=== PATIENT | female | born 1965 | race Caucasian/White ===

== ENCOUNTER 2017-03-16 18:03 | Emergency (ER) | payer OTHER ==
[~2017-03-16] VITALS: Ht 172.7 cm; Wt 125.4 kg
[~2017-03-16 18:03] MED LIST: ADVIL,NUPRIN,M200 MG PO; AUGMENTIN875 MG PO; ENDOCET 5-3251 EACH PO; EXCEDRIN MIGRAI1 TAB PO; FLEXERIL10 MG PO; KAPIDEX60 MG PO; LORTAB 7.5/51 TABLET PO; NAPROSYN500 MG PO; PERCOCET 5/31 TABLET PO; PREDNISONE10 MG PO; PREDNISONE20 MG PO; PROTONIX40 MG PO; STOOL SOFTENER100 M1 PO; Tums PO; ULTRAM50 MG PO; VALIUM5 MG PO; VICODIN 5-3001 EACH PO
[2017-03-16] MEDS ORDERED: FLEXERIL10 MG PO (20:39)
[2017-03-16] MEDS ORDERED: LORTAB 5-325 M1 EACH PO (20:39)
[2017-03-16] MEDS ORDERED: LIDODERM 5% P1 PATCH TD (20:39)
[2017-03-16] MEDS ORDERED: PREDNISONE10 MG PO (20:39)
[2017-03-16 22:16] LABS: HEMATOCRIT 43.5 % (36.0-46.0); MCH 30.2 PG (29.0-34.0); MCHC 33.6 G/DL (30.0-36.0); MCV 90.1 FL (83-99); MEAN PLAT.VOLUME 10.8 uM^3 (9.5-12.4); PLATELET COUNT 260 K/uL (156-360); RBC DIS.WIDTH-CV 13.3 % (11.8-14.6); RBC DIS.WIDTH-SD 43.9 % (39-53); RED BLOOD COUNT 4.83 M/uL (3.80-5.20); WHITE BLOOD COUNT 9.2 K/uL (4.1-10.2)
[2017-03-16 22:27] LABS: CHLORIDE 112 mEq/L (99-109); POTASSIUM 4.3 mEq/L (3.7-5.4); SODIUM 142 mEq/L (136-147)
[2017-03-16 22:30] LABS: GLUCOSE 140 mg/dL (70-99)
[2017-03-16 22:31] LABS: ANION GAP 11 MEQ/L (2-14)
[2017-03-16 22:32] LABS: TOTAL BILIRUBIN 0.3 mg/dL (0.0-1.0)
[2017-03-16 22:33] LABS: ALKALINE PHOSPHATASE 73 IU/L (3-129); GFR ESTIMATE (CALCULATED) > 59 mL/min/
[2017-03-16 22:34] LABS: UREA NITROGEN (BUN) 13 mg/dL (9-23)
[2017-03-16 22:36] LABS: TROP-I INTERPRETATION NEGATIVE; TROPONIN-I < 0.01 ng/mL (0.0-0.30)
[2017-03-17 01:11] LABS: TROP-I INTERPRETATION NEGATIVE; TROPONIN-I < 0.01 ng/mL (0.0-0.30)
[2017-03-17 01:39] VITALS: BP 125/88
== END 2017-03-17 01:40 | disposition home or self-care (01) ==
LOC: EME 18:03
PROVIDERS: Nurse Practitioner Family; Physician Assistant Medical
DX: R07.9 Chest pain, unspecified (principal); M54.42 Lumbago with sciatica, left side; S16.1XXA Strain of muscle, fascia and tendon at neck level, initial encounter; S46.812A Strain of other muscles, fascia and tendons at shoulder and upper arm level, left arm, initial encounter; S39.012A Strain of muscle, fascia and tendon of lower back, initial encounter; X58.XXXA Exposure to other specified factors, initial encounter; F17.200 Nicotine dependence, unspecified, uncomplicated
CPT/HCPCS: 71020; 73502; 80053; 84484; 85027; 93005; 99281; 99284; J1885; J2270; J3010; J7512

== ENCOUNTER 2018-01-15 00:12 | Observation (INO) | payer SELFPAY ==
[~2018-01-15] VITALS: Ht 172.7 cm; Wt 126.3 kg
[~2018-01-15 00:12] MED LIST changes: +LIDODERM 5% P1 PATCH TD; +LORTAB 5-325 M1 EACH PO
[2018-01-15 01:01] LABS: BASOPHIL (%) 0.8 % (0-1); BASOPHIL COUNT 0.1 K/uL (0-0.1); EOSINOPHIL (%) 2.5 % (0-5); EOSINOPHIL COUNT 0.3 K/uL (0-0.3); HEMATOCRIT 41.8 % (36.0-46.0); IMMATURE GRANULOCYTE (%) 0.4 % (0.0-0.7); LYMPHOCYTE (%) 35.9 % (15-42); LYMPHOCYTE COUNT 3.7 K/uL (1.0-2.8); MCH 30.3 PG (29.0-34.0); MCHC 33.5 G/DL (30.0-36.0); MCV 90.5 FL (83-99); MONOCYTE (%) 7.4 % (3-12); MONOCYTE COUNT 0.8 K/uL (0-0.8); NEUTROPHIL COUNT 5.4 K/uL (1.8-6.4); PLATELET COUNT 262 K/uL (156-360); RBC DIS.WIDTH-CV 13.2 % (11.8-14.6); RBC DIS.WIDTH-SD 43.9 % (39-53); RED BLOOD COUNT 4.62 M/uL (3.80-5.20); WHITE BLOOD COUNT 10.2 K/uL (4.1-10.2)
[2018-01-15 01:09] LABS: PTT 29.9 SEC (25-37)
[2018-01-15 01:13] LABS: CHLORIDE 110 mEq/L (99-109)
[2018-01-15 01:14] LABS: SODIUM 144 mEq/L (136-147)
[2018-01-15 01:15] LABS: GLUCOSE 99 mg/dL (70-99)
[2018-01-15 01:19] LABS: CREATININE 0.8 mg/dL (0.6-1.3); GFR ESTIMATE (CALCULATED) > 59 mL/min/
[2018-01-15 01:20] LABS: UREA NITROGEN (BUN) 14 mg/dL (9-23)
[2018-01-15 01:23] LABS: TROP-I INTERPRETATION NEGATIVE; TROPONIN-I < 0.01 ng/mL (0.0-0.30)
[2018-01-15] MEDS ORDERED: EXCEDRIN MIGRA1 EAC3 PO (04:28)
[2018-01-15] MEDS ORDERED: TIZANIDINE HCL4 MG PO (04:28)
[2018-01-15 05:58] LABS: HDL CHOLESTEROL 42 MG/DL (Desirable>=50); LDL CHOLESTEROL 171 mg/dL (Desirable<100); NON-HDL CHOLESTEROL 204 mg/dL (Desirable<160); TOTAL CHOLESTEROL 246 mg/dL (Desirable<200); TRIGLYCERIDES 164 MG/DL (Normal: <150)
[2018-01-15 06:11] VITALS: BP 119/73
[2018-01-15 07:40] VITALS: BP 115/65
[2018-01-15 12:08] LABS: HEMOGLOBIN A1c (GLYCOHEMOGLOB) 5.6 % (Below 5.7)
[2018-01-15 12:12] VITALS: BP 121/71
[2018-01-15] MEDS ORDERED: ATORVASTATIN CA40 MG PO (14:20)
[2018-01-15] MEDS ORDERED: ASPIRIN81 M2 PO (14:20)
[2018-01-15] MEDS ORDERED: ANTIVERT25 MG PO (14:20)
[2018-01-15] MEDS ORDERED: BUTALB-APAP-CA1 EACH PO (15:06)
[2018-01-15] MEDS ORDERED: MELOXICAM7.5 MG PO (15:20)
[2018-01-15] MEDS ORDERED: ROPINIROLE HCL4 MG PO (15:20)
[2018-01-15 16:18] VITALS: BP 129/78
[2018-01-15 19:15] VITALS: BP 122/59
[2018-01-16] VITALS: BP 104/59
[2018-01-16 04:42] VITALS: BP 89/54
[2018-01-16 06:06] VITALS: BP 115/63
[2018-01-16 07:17] VITALS: BP 110/55
== END 2018-01-16 11:13 | disposition home or self-care (01) ==
LOC: EME 00:12 → EDOF 03:54 → 4SOUTH 03:54 → EDOF 03:54 → ENRESERV 03:57 → 4SOUTH 05:14 → ENPENDDIS 01-16 10:08 → 4SOUTH 01-16 11:13
PROVIDERS: Emergency Medicine; Nurse Practitioner Adult Health
DX: H81.10 Benign paroxysmal vertigo, unspecified ear (principal); K21.9 Gastro-esophageal reflux disease without esophagitis; F17.210 Nicotine dependence, cigarettes, uncomplicated; M54.2 Cervicalgia; R47.81 Slurred speech; R51 Headache
CPT/HCPCS: 70496; 70498; 70551; 80048; 80061; 83036; 84484; 85025; 85610; 85730; 93005; 99281; 99285; G0378; G8978 GP CJ; G8979 GP CH; G8980 CJ; G8987 GO CJ; G8988 GO CJ; G8989 CJ; J1100; J1650; J2060; J2765; J3010; J7030